=== PATIENT | female | born 1940 | race Caucasian/White ===

== ENCOUNTER 2021-01-23 00:15 | Emergency (ER) | payer MEDICAID, SELFPAY ==
[2021-01-23 00:34] VITALS: BP 150/59; PULSE 65; RESP 18; TEMP 36.4; O2SAT 98; BMI 26.7
--- NOTE | 2021-01-23 00:44 | ED.GENADULT ---
HPI - General Adult General Chief complaint: General Medical Stated complaint: Nose Bleed (On blood thinners) Time Seen by Provider: 01/23/21 00:43 Source: patient Mode of arrival: ambulatory History of Present Illness HPI narrative: 80-year-old male on S presents with epistaxis that was ongoing for approximately 1 hour from the left nostril and patient states atraumatic. Patient says that she has always had some problem with nose bleeds even prior to being placed on the Plavix. At this time, the bleeding has completely resolved. Related Data Allergies Allergy/AdvReac Type Severity Reaction Status Date / Time No Known Allergies Allergy Verified 01/23/21 00:33 Review of Systems Review of Systems: Pertinent positives and negatives as stated in the HPI and 10 point review of systems is otherwise negative. PMFSH Past Medical History Source: nursing notes reviewed Social History Social History Advance Directives: No Advance Directives Information Provided: Yes Physical Exam Vital Signs: Vital Signs: Last Vital Signs Temp 97.6 F 01/23/21 00:34 Pulse 65 01/23/21 00:34 Resp 18 01/23/21 00:34 BP 150/59 H 01/23/21 00:34 Pulse Ox 98 01/23/21 00:34 Body Mass Index 26.7 VITAL SIGNS: Reviewed. GENERAL: Elderly, well nourished, in no acute distress. HEAD: Normocephalic/atraumatic EYES: PERRLA, EOMI NOSE: Nares patent bilateral, stigmata of bleeding in left naris but hemostatic at this time. OROPHARYNX: no oral lesions noted, posterior pharynx clear LUNGS: Normal breath sounds. No adventitious sounds or accessory muscle use. SpO2<98> CARDIOVASCULAR: Regular rate and rhythm without noted murmurs ABDOMEN: Soft, non-tender, non-distended with bowel sounds. NEUROLOGIC: Alert and oriented x 4. Course Course Course Narrative: 80-year-old female with history and clinical presentation consistent with epistaxis secondary to dry air and patient being on Plavix. Epistaxis is controlled at this time, but patient will receive 2 sprays of Afrin and be discharged home. Discharge Plan Discharge Clinical Impression: Epistaxis Patient Disposition: Home, Self-Care Instructions: Nosebleed (ED), Oxymetazoline (Into the nose) Additional Instructions: 1. Resume all home medications as prescribed. 2. Recommend cool mist humidifier at the bedside while sleeping for additional moisture in the air. 3. Recommend [id number] saline spray and use in both nostrils 3 to 4 times a day. 4. You have been provided with Afrin and if you develop a nose bleed recommend 2 sprays into the affected nostril and then application of pressure for 5 minutes. Check bleeding after 5 minutes and if it is persisting reapply 2 more sprays and apply pressure for an additional 5 minutes. If bleeding continues despite 2 applications of Afrin then proceed to an emergency room for re-evaluation. 5. Follow-up with your primary care provider when you return to [place]. Return to the ER for worsening symptoms.
[2021-01-23] MEDS: Oxymetazoline HCl 0.05 % Nasal 15 ML SPRAY 2 SPRAY NOSTRIL-L (01:15)
== END 2021-01-23 01:23 | disposition home or self-care (01) ==
LOC: HO.ED 00:54
PROVIDERS: Emergency Provider Student in an Organized Health Care Education/Training Program
DX: R04.0 Epistaxis (principal); Z79.01 Long term (current) use of anticoagulants
CPT/HCPCS: 99283